=== PATIENT | female | born 1965 | race Caucasian/White ===

== ENCOUNTER 2021-07-19 15:00 | Emergency (ER) | payer BC ==
[2021-07-19 15:19] VITALS: BP 152/83; PULSE 97; TEMP 98.3; BMI 27.7
== END 2021-07-19 16:33 | disposition home or self-care (01) ==
LOC: FER 15:00
DX: S92.515A Nondisplaced fracture of proximal phalanx of left lesser toe(s), initial encounter for closed fracture (principal); S92.502A Displaced unspecified fracture of left lesser toe(s), initial encounter for closed fracture; X50.0XXA Overexertion from strenuous movement or load, initial encounter
CPT/HCPCS: 73610-TC-LT-FY; 73630-TC-LT; 99283-25